=== PATIENT | female | born 1975 | race Caucasian/White ===

== ENCOUNTER 2017-06-24 20:10 | Emergency (ER) | payer OTHER ==
[2017-06-24 20:16] VITALS: BP 127/89
[2017-06-24] MEDS ORDERED: Tetracaine HCl/PF 0.5% 4 ML Bottle EYERT ONE (20:25)
[2017-06-24] MEDS ORDERED: Ciprofloxacin 0.3% Ophth Soln 2.5 ML Bottle EYERT SCH (20:30)
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
[2017-06-25] MEDS ORDERED: Ciprofloxacin 0.3% Ophth Soln 2.5 ML Bottle EYERT SCH (08:00)
== END 2017-06-24 20:45 | disposition home or self-care (01) ==
LOC: CC.ED 20:10
DX: S05.01XA Injury of conjunctiva and corneal abrasion without foreign body, right eye, initial encounter (principal); E03.9 Hypothyroidism, unspecified; Z88.5 Allergy status to narcotic agent; Z88.1 Allergy status to other antibiotic agents; Z79.899 Other long term (current) drug therapy; Z87.891 Personal history of nicotine dependence; W22.8XXA Striking against or struck by other objects, initial encounter
CPT/HCPCS: 99282; A9270-GY

== ENCOUNTER → 2018-01-17 | Day surgery (SDC) | payer OTHER ==
[~2018-01-17] MED LIST: Lactated Ringers 1,000 ML IV SCH; Propofol 200 MG/20 ML SDV IV ONE
[2018-01-17 13:04] VITALS: BP 109/78
--- NOTE | 2018-01-17 14:40 | OR ---
DATE OF OPERATION: 01/17/2018 PREOPERATIVE DIAGNOSIS: BRIGHT RED BLOOD PER RECTUM. POSTOPERATIVE DIAGNOSIS: BRIGHT RED BLOOD PER RECTUM. SURGEON: Demetrio Johnson MD PROCEDURE: FULL-LENGTH COLONOSCOPY. ANESTHESIA: NUTRITION CLUB AMBASSADOR. COMPLICATIONS: None. SPECIMEN: None. FINDINGS: 1. Normal full length colonoscopy. 2. Prominent perianal vascular tissue. RECOMMENDATIONS: Routine medical followup with Soraya Brandt PA-C. Stool softener regularly or as needed. INDICATIONS: The patient presented with some occasional bright red blood per rectum. Otherwise, asymptomatic. Soraya sent her for colonoscopy. DESCRIPTION OF PROCEDURE: The procedure was prepped and draped, placed in the left lateral decubitus position. A lubricated Olympus colonoscope was inserted and ultimately advanced to the cecum. We were able to visualize ileocecal valve, palpate the scope in the right lower quadrant. The bowel prep was adequate. Upon withdrawal of the scope, the cecum, ascending, and transverse colon appeared benign. Throughout the entire left colon, I could find no signs of any polyps, mass, ulcerations, or bleeding sites. No vascular abnormalities or signs of colitis. No diverticula were seen. The rectal vault appeared unremarkable. Retroflexion confirmed lot of perianal vascular tissue without any acute bleeding. Air was then suctioned. Scope removed without complication. NERY/AUTUMN /[id number]
== END ==
LOC: CC.SDS 11:13
PROVIDERS: ATTEND Family Medicine
DX: K62.5 Hemorrhage of anus and rectum (principal); K62.89 Other specified diseases of anus and rectum; E78.5 Hyperlipidemia, unspecified; E03.9 Hypothyroidism, unspecified; Z87.891 Personal history of nicotine dependence; Z79.899 Other long term (current) drug therapy; Z88.5 Allergy status to narcotic agent; Z88.1 Allergy status to other antibiotic agents
CPT/HCPCS: J2704; J7120

== ENCOUNTER 2020-02-08 13:03 | Emergency (ER) | payer OTHER ==
[2020-02-08 13:28] VITALS: BP 150/63; PULSE 90
[2020-02-08] MEDS ORDERED: Sodium Chloride 0.9% 1,000 ML ONE (13:28)
[2020-02-08] MEDS ORDERED: Sodium Chloride 0.9% 1,000 ML IV SCH (14:00)
[2020-02-08 14:30] LABS: CHLORIDE,CL 102 mEq/L (98-106); SODIUM,NA 140 mEq/L (136-145)
[2020-02-08] MEDS ORDERED: Cyclobenzaprine 10 MG Tab PO ONE (14:44)
[2020-02-08] MEDS ORDERED: Ketorolac 30 MG/ML SDV IVPUSH ONE (14:44)
--- NOTE | 2020-02-08 15:02 | EDM.PDOC ---
ED HPI GENERAL MEDICAL PROBLEM - General Chief Complaint: General Stated Complaint: COVID Time Seen by Provider: 02/08/20 13:20 Source of Information: Reports: Patient History Limitations: Reports: No Limitations - History of Present Illness INITIAL COMMENTS - FREE TEXT/NARRATIVE: Kameron is a 44 yo female who presents to the ED with c/o worsening COVID-19 symptoms. Was diagnosed with covid 02/02/2020, which was also day of symptom onset. Reports she has been struggling with body aches, diarrhea, headache, and generalized malaise. She reports that the last few days she has had right sided chest pain, described as spasm. She has been taking ibuprofen without relief. She reports warm bath does seem to help, but only for a short time. She reports she also feels short of breath at times. Os sats 98% on RA. No respiratory distress. She reports loss of taste and smell, so hasn't been eating/drinking much. Onset Date: 02/02/20 Duration: Getting Worse Location: Reports: Chest, Generalized Associated Symptoms: Reports: Chest Pain, Cough, cough w sputum, Headaches, Loss of Appetite, Malaise, Nausea/Vomiting, Shortness of Breath, Weakness. Denies: Confusion, Diaphoresis, Fever/Chills Treatments TRANSFORMER COIL WINDER: Reports: Acetaminophen, NSAIDS Chest Pain Score (Numeric/FACES): 6 - Related Data Allergies Allergy/AdvReac Type Severity Reaction Status Date / Time ceftriaxone [From Rocephin] Allergy Hives Verified 02/08/20 13:07 codeine Allergy Vomiting Verified 02/08/20 13:07 oseltamivir [From Tamiflu] Allergy Rash Verified 02/08/20 13:07 Home Meds: Home Meds Cholecalciferol (Vitamin D3) [Vitamin D] 50,000 unit PO DAILY 08/27/14 [History] Levothyroxine Sodium 150 mg PO DAILY 08/27/14 [History] Liothyronine [Cytomel] 5 mcg PO BID 10/15/16 [History] Past Medical History HEENT History: Reports: Impaired Vision Cardiovascular History: Reports: High Cholesterol Respiratory History: Reports: Bronchitis, Recurrent Endocrine/Metabolic History: Reports: Hypothyroidism Oncologic (Cancer) History: Reports: Cervix - Past Surgical History Other HEENT Surgeries/Procedures: wisdom teeth x4 Cardiovascular Surgical History: Reports: None Respiratory Surgical History: Reports: None Other GI Surgeries/Procedures: APPENDECTOMY Other Endocrine Surgeries/Procedures: RADIATION TO THYROID FOR GRAVES DISEASE Social & Family History - Family History Family Medical History: Noncontributory - Tobacco Use Tobacco Use Status *Q: Never Tobacco User Second Hand Smoke Exposure: No - Caffeine Use Caffeine Use: Reports: None - Recreational Drug Use Recreational Drug Use: No - Living Situation & Occupation Occupation: Employed ED ROS GENERAL - Review of Systems Review Of Systems: Comprehensive ROS is negative, except as noted in HPI. Constitutional: Reports: Malaise, Weakness, Fatigue, Decreased Appetite ED EXAM, GENERAL - Physical Exam Exam: See Below Exam Limited By: No Limitations General Appearance: Alert, WD/WN, No Apparent Distress Eye Exam: Bilateral Eye: EOMI, Normal Fundi, Normal Inspection, PERRL Ears: Normal External Exam, Normal Canal, Hearing Grossly Normal, Normal TMs Nose: Normal Inspection, Normal Mucosa, No Blood Throat/Mouth: Normal Inspection, Normal Lips, Normal Teeth, Normal Gums, Normal Oropharynx, Normal Voice, No Airway Compromise Head: Atraumatic, Normocephalic Neck: Normal Inspection, Supple, Non-Tender, Full Range of Motion Respiratory/Chest: No Respiratory Distress, Lungs Clear, Normal Breath Sounds, No Accessory Muscle Use, Chest Non-Tender. No: Decreased Breath Sounds, Crackles, Rhonchi, Wheezing, Accessory Muscle Use Cardiovascular: Normal Peripheral Pulses, Regular Rate, Rhythm, No Edema, No Gallop, No JVD, No Murmur, No Rub GI/Abdominal: Normal Bowel Sounds, Soft, Non-Tender, No Organomegaly, No Distention, No Abnormal Bruit, No Mass Extremities: Normal Inspection, Normal Range of Motion, Non-Tender, Normal Capillary Refill, No Pedal Edema Neurological: Alert, Oriented, CN II-XII Intact, Normal Cognition, Normal Gait, Normal Reflexes, No Motor/Sensory Deficits Psychiatric: Normal Affect, Normal Mood Skin Exam: Warm, Dry, Intact, Normal Color, No Rash Lymphatic: No Adenopathy Course - Vital Signs Last Recorded V/S: Last Vital Signs Temp 97.3 F 02/08/20 13:10 Pulse 90 02/08/20 13:10 Resp 16 02/08/20 13:10 BP 150/63 H 02/08/20 13:10 Pulse Ox 98 02/08/20 13:10 - Orders/Labs/Meds Orders: Active Orders 24 hr Category Date Time Status Chest 2V [CR] Routine Exams 02/08/20 Taken Labs: Laboratory Tests 02/08/20 02/08/20 02/08/20 Range/Units 14:00 14:10 14:10 WBC 4.3 L (5.0-10.0) 10^3/uL RBC 4.91 (4.00-5.50) 10^6/uL Hgb 14.5 (12.0-16.0) g/dL Hct 44.3 (37.0-47.0) % MCV 90.2 (82.0-94.0) fL MCH 29.5 (27.0-32.0) pg MCHC 32.7 L (33.0-38.0) g/dL RDW Coeff of Eliel 12.3 (11.0-15.0) % Plt Count 173 (150-400) 10^3/uL Neut % (Auto) 74.4 (35-85) % Lymph % (Auto) 18.1 (10-55) % Aurora % (Auto) 7.3 (0-16) % Eos % (Auto) 0 (0-5) % Baso % (Auto) 0.2 (0-3) % Neut # (Auto) 3.16 (1.80-7.00) 10^3/uL Lymph # (Auto) 0.77 L (1.00-4.80) 10^3/uL Aurora # (Auto) 0.31 (0.00-0.80) 10^3/uL Eos # (Auto) 0.00 (0.00-0.45) 10^3/uL Baso # (Auto) 0.01 10^3/uL D-Dimer, Quantitative 0.59 H (0.00-0.50) Sodium 140 (136-145) mEq/L Potassium 3.9 (3.5-5.0) mEq/L Chloride 102 (98-106) mEq/L Carbon Dioxide 31 (21-32) mmol/L BUN 6 L (7-18) mg/dL Creatinine 0.7 (0.6-1.0) mg/dL Est Cr Clr Drug Dosing 112.24 mL/min Estimated GFR (MDRD) > 60 (>=60) mL/min Glucose 91 (75-99) mg/dL Lactic Acid (0.4-2.0) mmol/L Calcium 8.7 (8.4-10.1) mg/dL Total Bilirubin 0.2 (0.0-1.0) mg/dL AST 23 (15-37) U/L ALT 39 (12-78) U/L Alkaline Phosphatase 74 (46-116) U/L Lactate Dehydrogenase 179 (100-190) U/L Troponin I < 0.017 (0.00-0.06) ng/mL C-Reactive Protein 0.3 (0.2-0.8) mg/dL Total Protein 7.0 (6.4-8.2) g/dL Albumin 3.5 (3.4-5.0) g/dL 02/08/20 Range/Units 14:10 WBC (5.0-10.0) 10^3/uL RBC (4.00-5.50) 10^6/uL Hgb (12.0-16.0) g/dL Hct (37.0-47.0) % MCV (82.0-94.0) fL MCH (27.0-32.0) pg MCHC (33.0-38.0) g/dL RDW Coeff of Eliel (11.0-15.0) % Plt Count (150-400) 10^3/uL Neut % (Auto) (35-85) % Lymph % (Auto) (10-55) % Aurora % (Auto) (0-16) % Eos % (Auto) (0-5) % Baso % (Auto) (0-3) % Neut # (Auto) (1.80-7.00) 10^3/uL Lymph # (Auto) (1.00-4.80) 10^3/uL Aurora # (Auto) (0.00-0.80) 10^3/uL Eos # (Auto) (0.00-0.45) 10^3/uL Baso # (Auto) 10^3/uL D-Dimer, Quantitative (0.00-0.50) Sodium (136-145) mEq/L Potassium (3.5-5.0) mEq/L Chloride (98-106) mEq/L Carbon Dioxide (21-32) mmol/L BUN (7-18) mg/dL Creatinine (0.6-1.0) mg/dL Est Cr Clr Drug Dosing mL/min Estimated GFR (MDRD) (>=60) mL/min Glucose (75-99) mg/dL Lactic Acid 0.5 (0.4-2.0) mmol/L Calcium (8.4-10.1) mg/dL Total Bilirubin (0.0-1.0) mg/dL AST (15-37) U/L ALT (12-78) U/L Alkaline Phosphatase (46-116) U/L Lactate Dehydrogenase (100-190) U/L Troponin I (0.00-0.06) ng/mL C-Reactive Protein (0.2-0.8) mg/dL Total Protein (6.4-8.2) g/dL Albumin (3.4-5.0) g/dL Meds: Medications Discontinued Medications Generic Name Dose Route Start Last Admin Trade Name Freq PRN Reason Stop Dose Admin Cyclobenzaprine HCl 10 mg 02/08/20 14:44 02/08/20 14:52 Flexeril PO 02/08/20 14:45 10 mg ONETIME ONE Administration Sodium Chloride Confirm 02/08/20 13:28 02/08/20 14:12 Normal Saline Administered 02/08/20 13:29 Not Given Dose 1,000 mls @ as directed .ROUTE .STK-MED ONE Sodium Chloride 1,000 mls @ 999 mls/hr 02/08/20 14:00 02/08/20 13:57 Normal Saline IV 999 mls/hr ASDIRECTED SIRENA Administration Ketorolac Tromethamine 30 mg 02/08/20 14:44 02/08/20 14:52 Toradol IVPUSH 02/08/20 14:45 30 mg ONETIME ONE Administration Departure - Departure Time of Disposition: 14:57 Disposition: Home, Self-Care 01 Condition: Fair Clinical Impression: COVID-19 - Discharge Information *PRESCRIPTION DRUG MONITORING PROGRAM REVIEWED*: Not Applicable *COPY OF PRESCRIPTION DRUG MONITORING REPORT IN PATIENT JANI: Not Applicable Instructions: COVID-19 Referrals: Krystina Berman NP [Primary Care Provider] - Forms: ED Department Discharge Additional Instructions: - Labs, EKG, and Chest Xray all normal - Rest and push fluids - Alternate Tylenol and ibuprofen every 3-4 hours as needed for discomfort - Head to affected areas as needed for comfort - Follow up for any worsening shortness of breath or difficulty breathing Sepsis Event Note (ED) - Evaluation Sepsis Screening Result: No Definite Risk - Focused Exam Vital Signs: Vital Signs Temp Pulse Resp BP Pulse Ox 02/08/20 13:10 97.3 F 90 16 150/63 H 98 - Problem List & Annotations (1) COVID-19 SNOMED Code(s): 754142056 Code(s): U07.1 - COVID-19 Status: Acute - My Orders Last 24 Hours: My Active Orders 02/08/20 Chest 2V [CR] Routine - Assessment/Plan Last 24 Hours: My Active Orders 02/08/20 Chest 2V [CR] Routine Assessment:: Covid-19 Plan: Discussed normal symptoms/course of Covid 19. Labs, EKG, and chest xray all unremarkable. VSS on RA. Patient was given 1L LR fluid bolus, 30 mg Toradol IVP, and 10 mg Norflex PO while in ED. Recommend patient rest and push fluids. May alternate Tylenol and ibuprofen every 3-4 hours as needed for discomfort. Return to ED for emergent needs or if any worsening in breathing or difficulty breathing. Patient verbalized understanding and was agreeable to discharge. All questions were answered and patient had no additional questions at time of discharge. Discharged from facility in satisfactory condition.
== END 2020-02-08 15:01 | disposition home or self-care (01) ==
LOC: CC.ED 13:03
DX: U07.1 COVID-19 (principal); E03.9 Hypothyroidism, unspecified; Z88.5 Allergy status to narcotic agent; Z88.1 Allergy status to other antibiotic agents; Z90.49 Acquired absence of other specified parts of digestive tract; Z79.899 Other long term (current) drug therapy
CPT/HCPCS: 36415; 71046; 80053; 83605; 83615; 84484; 85025; 85379; 86140; 93005; 96374; 99285; A9270; J1885; J7030

== ENCOUNTER 2021-05-13 18:39 | Emergency (ER) | payer OTHER ==
[2021-05-13] MEDS ORDERED: LORazepam 2 MG/ML Syringe IVPUSH ONE (18:49)
[2021-05-13] MEDS ORDERED: Ondansetron 4 MG/2 ML SDV IVPUSH PRN (18:59)
[2021-05-13] MEDS ORDERED: Ketorolac 30 MG/ML SDV IVPUSH ONE (19:24)
[2021-05-13] MEDS ORDERED: Acetaminophen/HYDROcodone 325-5 MG Tab PO ONE (19:25)
[2021-05-13 19:52] LABS: CHLORIDE,CL 98 mEq/L (98-106); SODIUM,NA 138 mEq/L (136-145)
[2021-05-13] MEDS ORDERED: Levofloxacin 500 MG Tab PO ONE (19:56)
[2021-05-13 20:13] VITALS: BP 145/84; PULSE 88
[2021-05-13] MEDS ORDERED: Take Home: Acetaminophen/HYDROcodone 325-5 MG, 2 Tab Pack PO ONE (21:54)
[2021-05-13] MEDS ORDERED: Take Home: Levofloxacin 500 MG Tab, 1 Tab Pack PO ONE (21:54)
== END 2021-05-13 22:30 | disposition home or self-care (01) ==
LOC: CC.ED 18:39
DX: M54.50 Low back pain, unspecified (principal); E03.9 Hypothyroidism, unspecified; Z88.1 Allergy status to other antibiotic agents; Z88.8 Allergy status to other drugs, medicaments and biological substances; Z88.5 Allergy status to narcotic agent; Z79.899 Other long term (current) drug therapy
CPT/HCPCS: 36415; 72131; 80053; 85025; 86140; 96374; 96375; 99284-25; A9270-GY; J1885; J2060; J2405

== ENCOUNTER 2021-05-28 19:53 | Emergency (ER) | payer OTHER ==
[~2021-05-28 19:53] MED LIST changes: +Cyclobenzaprine 10 MG Tab ONE; -Lactated Ringers 1,000 ML IV SCH; -Propofol 200 MG/20 ML SDV IV ONE; +Take Home: Acetaminophen/oxyCODONE 325-5 MG, 2 Tab Pack ONE; +Take Home: Cyclobenzaprine 10 MG Tab, 4 Tab Pack ONE
[2021-05-28] MEDS ORDERED: Take Home: Acetaminophen/oxyCODONE 325-5 MG, 2 Tab Pack PO ONE (19:55)
[2021-05-28] MEDS ORDERED: Take Home: Cyclobenzaprine 10 MG Tab, 4 Tab Pack PO ONE (19:55)
[2021-05-29 00:01] VITALS: BP 140/82; PULSE 99
== END 2021-05-28 20:15 | disposition home or self-care (01) ==
LOC: CC.ED 19:53
DX: M54.50 Low back pain, unspecified (principal); E78.00 Pure hypercholesterolemia, unspecified; E03.9 Hypothyroidism, unspecified; Z88.5 Allergy status to narcotic agent; Z88.1 Allergy status to other antibiotic agents; Z88.8 Allergy status to other drugs, medicaments and biological substances; Z79.899 Other long term (current) drug therapy
CPT/HCPCS: 99283; A9270-GY

== ENCOUNTER 2021-06-29 06:58 | Emergency (ER) | payer OTHER ==
[2021-06-29 07:09] VITALS: BP 143/93; PULSE 98
[2021-06-29] MEDS ORDERED: Ondansetron 4 MG/2 ML SDV IVPUSH STA (07:30)
[2021-06-29] MEDS ORDERED: Sodium Chloride 0.9% 1,000 ML IV ONE (07:31)
[2021-06-29 07:44] LABS: CHLORIDE,CL 105 mEq/L (98-106); SODIUM,NA 144 mEq/L (136-145)
== END 2021-06-29 08:40 | disposition home or self-care (01) ==
LOC: CC.ED 06:58
DX: K52.9 Noninfective gastroenteritis and colitis, unspecified (principal); E86.0 Dehydration; R11.2 Nausea with vomiting, unspecified; E78.00 Pure hypercholesterolemia, unspecified; E03.9 Hypothyroidism, unspecified; Z88.1 Allergy status to other antibiotic agents; Z88.5 Allergy status to narcotic agent; Z88.8 Allergy status to other drugs, medicaments and biological substances; Z79.899 Other long term (current) drug therapy
CPT/HCPCS: 36415; 80053; 81003; 85025; 86140; 96374; 99284; 99284-25; J2405; J7030

== ENCOUNTER 2023-05-11 19:21 | Emergency (ER) | payer OTHER ==
[2023-05-11] MEDS: Sodium Chloride 0.9% 1,000 ML IV ONE (20:01)
[2023-05-11 20:02] LABS: APPEARANCE,URINE CLEAR (CLEAR); BILIRUBIN,URINE NEGATIVE (NEGATIVE); COLOR,URINE LIGHT YELLOW (YELLOW); GLUCOSE,URINE NEGATIVE (NEGATIVE); KETONES,URINE NEGATIVE (NEGATIVE); LEUKOCYTE ESTERASE,URINE NEGATIVE (NEGATIVE); NITRITE,URINE NEGATIVE (NEGATIVE); OCCULT BLOOD,URINE NEGATIVE (NEGATIVE); PH,URINE 6.5 (4.5-8.0); PROTEIN,URINE NEGATIVE (NEGATIVE); UROBILINOGEN,URINE 0.2 EU/dL (0.2-1.0)
[2023-05-11 20:03] LABS: BASOPHILS ABSOLUTE AUTO 0.06 10^3/uL (0.00-0.50); BASOPHILS PERCENT AUTO 0.5 % (0-1); EOSINOPHILS ABSOLUTE AUTO 0.11 10^3/uL (0.00-1.50); HEMATOCRIT 42.3 % (37.0-47.0); HEMOGLOBIN 13.8 g/dL (12.0-16.0); IMMATURE GRAN ABSOLUTE AUTO 0.01 10^3/uL (0.00-0.49); IMMATURE GRAN PERCENT AUTO 0.1 % (0.0-4.9); LYMPHOCYTES ABSOLUTE AUTO 2.93 10^3/uL (0.60-5.00); LYMPHOCYTES PERCENT AUTO 26.6 % (24-44); MEAN CORPUSCULAR HEMOGLOBIN 29.7 pg (27.0-32.0); MEAN CORPUSCULAR HGB CONC 32.6 g/dL (32.0-36.0); MONOCYTES PERCENT AUTO 9.1 % (0-10); NEUTROPHILS ABSOLUTE AUTO 6.89 x10^3/uL (1.80-8.00); NEUTROPHILS PERCENT AUTO 62.7 % (41-71); PLATELET COUNT,PLT 308 10^3/uL (150-400); RED BLOOD CELL COUNT 4.65 x10^6/uL (4.00-5.50)
[2023-05-11] MEDS: Ondansetron 4 MG/2 ML SDV IVPUSH ONE (20:04)
[2023-05-11] MEDS: Ketorolac 30 MG/ML SDV IVPUSH ONE (20:06)
[2023-05-11 20:07] LABS: BACTERIA,URINE NOT SEEN /HPF (NOT SEEN); EPITHELIAL CELLS,URINE NOT SEEN /HPF (NOT SEEN); MUCUS,URINE NOT SEEN /HPF (NOT SEEN); RBC,URINE NOT SEEN /HPF (0-5); WBC,URINE NOT SEEN /HPF (0-5)
[2023-05-11 20:15] LABS: ALANINE AMINOTRANSFERASE,ALT 16 U/L (12-78); ALBUMIN 3.4 g/dL (3.4-5.0); ALKALINE PHOSPHATASE 92 U/L (46-116); ASPARTATE AMNIOTRANSFERASE,AST 11 U/L (15-37); BILIRUBIN TOTAL 0.2 mg/dL (0.0-1.0); BLOOD UREA NITROGEN,BUN 7 mg/dL (7-18); CALCIUM 9.3 mg/dL (8.4-10.1); CARBON DIOXIDE,CO2 28 mmol/L (21-32); CHLORIDE,CL 102 mEq/L (98-106); CREATININE 0.6 mg/dL (0.6-1.0); ESTIMATED GFR 109 mL/min (>=60); GLUCOSE RANDOM 94 mg/dL (75-99); MAGNESIUM 1.7 mg/dL (1.8-2.4); POTASSIUM,K 3.7 mEq/L (3.5-5.0); PROTEIN TOTAL,TP 6.8 g/dL (6.4-8.2); SODIUM,NA 141 mEq/L (136-145)
[2023-05-11] MEDS: Magnesium Oxide 400 MG Tab PO ONE (21:11)
[2023-05-11 22:18] VITALS: BP 149/84; PULSE 72
== END 2023-05-11 21:10 | disposition home or self-care (01) ==
LOC: CC.ED 19:21
DX: E83.42 Hypomagnesemia (principal); E78.00 Pure hypercholesterolemia, unspecified; E03.9 Hypothyroidism, unspecified; Z88.1 Allergy status to other antibiotic agents; Z88.5 Allergy status to narcotic agent; Z88.8 Allergy status to other drugs, medicaments and biological substances; Z79.899 Other long term (current) drug therapy
CPT/HCPCS: 36415; 80053; 81001; 83735; 84484; 85025; 93010; 96361; 96374; 96375; 99284; 99285-25; A9270-GY; J1885; J2405; J7030